=== PATIENT | male | born 1975 | race Caucasian/White ===

== ENCOUNTER 2017-06-16 05:26 | Day surgery (SDC) | payer OTHER ==
[~2017-06-16] VITALS: Ht 175.3 cm; Wt 79.4 kg
--- NOTE | ~2017-06-16 | O ---
[address] [address] OPERATIVE REPORT Name: MARTIN ULRICH Room #: DEP [facility].#: [id number] Admission: 06/16/17 Attend Phys: Eder Hagan MD Discharge: 06/16/17 Date of : 75 Report #: [id number] THIS REPORT FOR: //name// CC: MARL[facility] physician/PCP Eder Hagan DATE OF SERVICE: 06/16/2017 SERVICE: Orthopedics. FACILITY: [facility]. SURGEON: Eder Hagan MD. ENTERTAINMENT MANAGER: None. PREOPERATIVE DIAGNOSES: 1. Left hip pain. 2. Left hip femoroacetabular impingement. 3. Left hip labral tear. POSTOPERATIVE DIAGNOSES: 1. Left hip pain. 2. Left hip femoroacetabular impingement. 3. Left hip labral tear. 4. Left hip acetabular chondromalacia. COMPLICATIONS: None. DRAINS: None. SPECIMENS: None. PROCEDURE: 1. Left hip arthroscopic limited subspine acetabuloplasty with labral repair. 2. Left hip arthroscopic Cam osteoplasty. ANESTHESIA TYPE: General with nerve block. FINDINGS: 1. Acetabular labral repair performed with [place] CinchLock suture anchor x 3. 2. Grade 2 and 3 chondromalacia of the acetabular rim measuring 2.5 cm x 5-6 mm. 3. Cam osteoplasty performed under fluoroscopic and arthroscopic visualization. 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 He works on the orthopedic floor at the [employer] and is up and down throughout the day, and the significant left hip pain, despite a thorough conservative measures, was incapacitating for him, and he therefore has stopped working. Conservative measures include activity modification, physical therapy, rest, oral medicines, injections without sufficient relief. He had a preoperative x-ray that showed no evidence of arthritis. The x-rays also showed a Cam lesion of approximately 69-70 degrees maximum alpha angle, and there is an MRI showing a labral tear, and there was a small crossover sign on the AP pelvis suggestive of focal subspine acetabular side pincer impingement lesion. Ton[place] grade was 0. Risks, benefits, alternatives and indications for surgical treatment were discussed with him in detail preoperatively. Risks include but not limited to pain, bleeding, infection, injury to nerves or blood vessels, persistent pain despite surgical intervention, failure of any repairs, reconstructions, progression of any preexisting chondral injury, stiffness, need for further surgery as well as complications related to anesthesia such as stroke, heart attack, pulmonary complications, thromboembolic disease and . Despite these risks, he wished to proceed. PROCEDURE IN DETAIL: After left lower extremity was correctly identified in the preoperative holding area as the operative extremity, the patient underwent placement of a single shot regional nerve block. He was then taken to the operating room, general endotracheal anesthesia was induced without complication. He was padded appropriately. Prophylactic antibiotics were administered at appropriate time. Traction boots were applied to bilateral lower extremities, and the left hip femoral head and neck junction was mapped out under fluoroscopy to assess the extent of the Cam deformity. Left lower extremity was then prepped and draped in standard sterile fashion. Time-out procedure was performed. Traction was applied to the left lower extremity. Total traction time was approximately 48 minutes. Standard anterolateral viewing portal, followed by mid anterior working portal were established. Diagnostic arthroscopy was performed. Transverse capsulotomy was performed as well. There was noted to be grade 2 and 3 chondromalacia at the chondral labral junction, and there was tearing at the chondral labral junction with some unstable flap tissue. The labral tissue quality in general was soft, pliable, and so I felt that mattress sutures were not feasible in this case, and so I selected a knotless suture anchor technique. The capsule was reflected off the dorsal side of the labrum to expose the acetabular side of bone. There was a focal area of prominent bone at the 12 o'clock position. This was recessed with the bur in the subspine region, and then, the labral repair was performed after the edge of the acetabulum was freshened with the bur to generate a bleeding surface. A total of 3 anchors were utilized using knotless row repair technique. The shaver was then used to complete the chondroplasty at the chondral labral junction after the labrum had been [address] [address] OPERATIVE REPORT Name: MARTIN ULRICH Room #: DEP [facility]#: [id number] Admission: 06/16/17 Attend Phys: Eder Hagan MD Discharge: 06/16/17 Date of : 75 Report #: [id number] anatomically reduced. The labrum was probed and found to be quite stable at this point. Traction was let down. Attention was turned towards the Cam. Hip was flexed up, and a Cam osteoplasty was performed in the standard fashion using arthroscopic visualization. The instruments were removed from the hip. I evaluated the resection on the x-ray, found one additional area that I felt needed to be removed, completed the osteoplasty, then with the camera and the bur back into the hip and then performed dynamic assessment and final fluoroscopic assessment to determine that the Cam resection was completed. The bony debris was lavaged out of the hip. The capsule was then closed with a total of 4 #2 Vicryl sutures. The arthroscopic effusion was drained, the instruments were removed. Portal sites were closed with a deep followed by superficial 3-0 Monocryl. Sterile dressing was applied. The patient was awakened from anesthesia and taken to recovery room in stable condition. <ELECTRONICALLY SIGNED> By: Eder Hagan MD 06/16/17 1727 [id number] Eder Hagan MD /nt
[~2017-06-16 05:26] MED LIST: LEXAPRO20 MG PO; TRAZODONE 150150 M1 PO
[2017-06-16 10:00] VITALS: BP 125/85
[2017-06-16 15:27] VITALS: BP 125/85
== END 2017-06-16 16:08 | disposition home or self-care (01) ==
LOC: OR 05:26 → TBA 05:26 → OR 09:28
DX: M25.852 Other specified joint disorders, left hip (principal); S73.102A Unspecified sprain of left hip, initial encounter; M94.252 Chondromalacia, left hip; F32.89 Other specified depressive episodes; F41.9 Anxiety disorder, unspecified; X58.XXXA Exposure to other specified factors, initial encounter; Y93.89 Activity, other specified; Y92.89 Other specified places as the place of occurrence of the external cause; Y99.8 Other external cause status; Z87.891 Personal history of nicotine dependence; Z98.890 Other specified postprocedural states
CPT/HCPCS: 50010; 50101; 50386; 51538; 52298; 52304; 55430; 56524; 56527; 57092; 62110; 62900; 64042; 64043; 70005